=== PATIENT | female | born 2000 | race Two or more races ===

== ENCOUNTER 2020-01-23 16:31 | Inpatient (IN) | payer MEDICAID ==
[~2020-01-23] VITALS: Ht 149.9 cm; Wt 56.2 kg
[2020-01-23 17:00] VITALS: BP 98/54
--- NOTE | 2020-01-23 17:00 | NUR ---
RN OPENING NOTES RECEIVED PATIENT FROM [facility]USTER, DIRECT ADMIT VIA [facility]. A/OX 2, ABLE TO STATE NAME, BIRTHDAY BUT NOT PLACE AND TIME. IN ROOM AIR, SATURATING WELL. IV ACCESS ON R AC #20, INTACT, PATENT AND FLUSHED WELL. NO SIGNS OF INFILTRATION. COMPLAINT OF PAIN ON L ELBOW, 02/04. ABLE TO AMBULATE WITH ASSIST. BELONGINGS CHECKED AND FILED ON THE CHART. SAFETY MEASURES IN PLACE, CALL LIGHT WITHIN REACH. WILL CONTINUE TO MONITOR
[2020-01-23] MEDS ORDERED: FEE PK DOSING 1 MIN EA MC ONE (18:19)
[2020-01-23] MEDS ORDERED: Z GUARD REMEDY 2 OZ OINT TP PRN (18:30)
[2020-01-23] MEDS ORDERED: ONDANSETRON HCL/PF 4 MG/2 ML VIAL IVP PRN (18:30)
[2020-01-23] MEDS ORDERED: MAGNESIUM HYDROXIDE 30 ML UDC PO PRN (18:30)
[2020-01-23] MEDS ORDERED: MAG HYDROX/AL HYDROX/SIMETH 30 ML UDC PO PRN (18:30)
--- NOTE | 2020-01-23 19:35 | NUR ---
RN Notes Patient asleep, breathing regular and unlabored on room air, no signs of distress and discomfort noted. IV access on right AC intact and flushing well. Swelling of left elbow noted. Plan of care discussed with the mother at bedside and verbalized understanding. Kept comfortable and attended.. Will continue to monitor.
--- NOTE | 2020-01-23 19:59 | NUR ---
RN CLOSING NOTES PATIENT IN BED, ASLEEP. IN NO APPARENT DISTRESS NOTES. IN ROOM AIR, NO SOB NOTED. IV ACCESS INTACT, PATENT AND FLUSHED WELL. KEPT CLEAN AND DRY. ALL NEEDS MET. ENDORSED TO PM RN FOR ARISTIDES.
[2020-01-23 20:00] VITALS: BP 111/44
[2020-01-23] MEDS ORDERED: VANCOMYCIN 1 GM in IV D5W 250ml IV ONE (20:00)
[2020-01-23 20:03] LABS: ALBUMIN 2.6 g/dL (3.4-5.0); BILIRUBIN,TOTAL 0.5 mg/dL (0.2-1.0); CALCIUM, SERUM 7.9 mg/dL (8.5-10.1); CREATININE 0.6 mg/dL (0.6-1.3); POTASSIUM 3.4 mmol/L (3.5-5.1); TOTAL PROTEIN, SERUM 5.7 g/dL (6.4-8.2)
[2020-01-23 20:13] LABS: THYROID STIMULATING HORMONE 0.771 uIU/mL (0.358-3.74)
[2020-01-23] MEDS: IV NS 0.9% 1,000 ML IV PRN (20:41)
[2020-01-23 20:52] LABS: BASOPHILS % (AUTO) 0.1 % (0.0-2.0); EOSINOPHILS % (AUTO) 0.4 % (0.0-6.0); HEMATOCRIT 31 % (33-45); HEMOGLOBIN 10.4 g/dL (11.5-14.8); LYMPHOCYTES # (AUTO) 1.3 /CMM (0.8-4.8); LYMPHOCYTES % (AUTO) 8.8 % (20.0-44.0); MEAN CORPUSCULAR HGB CONC 33 g/dl (31.0-36.0); MEAN CORPUSCULAR VOLUME 90 fL (82-100); MONOCYTES # (AUTO) 1.4 /CMM (0.1-1.30); MONOCYTES % (AUTO) 9.5 % (2.0-12.0); NEUTROPHILS # (AUTO) 12.1 /CMM (1.8-8.9); NEUTROPHILS % (AUTO) 81.2 % (43.0-81.0); PLATELET COUNT (AUTO) 232 /CMM (150-450); RED BLOOD CELL COUNT(AUTO) 3.45 MIL/uL (4.0-5.2); WHITE BLOOD COUNT (AUTO) 14.9 K/uL (4.3-11.0)
--- NOTE | 2020-01-23 22:50 | NUR ---
RN Notes Lab results relayed to Dr Veliz, no orders made.
[2020-01-24 01:00] VITALS: BP 111/44
[2020-01-24] MEDS: VANCOMYCIN HCL 0.75 GM in IV D5W 250 ML IV SCH ×3 (04:03→20:28)
[2020-01-24 06:46] LABS: BASOPHILS % (AUTO) 0.2 % (0.0-2.0); EOSINOPHILS % (AUTO) 1.1 % (0.0-6.0); HEMATOCRIT 31 % (33-45); HEMOGLOBIN 10.4 g/dL (11.5-14.8); LYMPHOCYTES # (AUTO) 1.9 /CMM (0.8-4.8); MEAN CORPUSCULAR HGB CONC 34 g/dl (31.0-36.0); MEAN CORPUSCULAR VOLUME 90 fL (82-100); MONOCYTES # (AUTO) 1.2 /CMM (0.1-1.30); MONOCYTES % (AUTO) 9.4 % (2.0-12.0); NEUTROPHILS # (AUTO) 9.6 /CMM (1.8-8.9); NEUTROPHILS % (AUTO) 74.3 % (43.0-81.0); PLATELET COUNT (AUTO) 225 /CMM (150-450); RED BLOOD CELL COUNT(AUTO) 3.46 MIL/uL (4.0-5.2)
[2020-01-24 07:03] LABS: CREATININE 0.5 mg/dL (0.6-1.3); POTASSIUM 2.9 mmol/L (3.5-5.1)
--- NOTE | 2020-01-24 07:04 | NUR ---
RN Notes Patient slept well overnight. Vital signs stable, afebrile. Patient calm and cooperative, face sheet faxed to [facility] for psych consult. Voiding well. Fall precaution observed. All needs attended. Will continue to monitor and will endorse accordingly.
--- NOTE | 2020-01-24 07:50 | NUR ---
RN NOTE: Received patient in bed, awake, alert and verbally responsive. Respiration even and unlabored saturating 99% in room air. Patient verbalized pain on her (L) elbow and she was offered Tylenol per EMAR. Patient strongly refused to get a Tylenol, but instead she wanted a stronger pain medication. She was informed that the hospitalist for today will be inform about her request for pain medication. (R) AC IV site was noted intact and patent infusing with NS@ 75ml/hr. HOB elevated. Afebrile. Skin warm to touch. Call light within reach. Needs anticipated. Mother Lee Ann was present at the bedside.
[2020-01-24 08:00] VITALS: BP 96/68
--- NOTE | 2020-01-24 10:00 | NUR ---
RN NOTE: Efra Alba NP was in the unit and spoke with the patient. He gave orders, noted and carried out. Patient and mother were both informed.
[2020-01-24] MEDS ORDERED: POTASSIUM CHLORIDE 20 MEQ TAB.PRT.SR PO ONE (11:00)
[2020-01-24] MEDS: HYDROCODONE/APAP 10/325MG 1 EA TABLET PO PRN (11:10)
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
[2020-01-24] MEDS: IV NS 0.9% 1,000 ML IV PRN (14:21)
[2020-01-24 16:00] VITALS: BP 110/76
[2020-01-24] MEDS: LORAZEPAM 1 MG TABLET PO PRN (16:43)
--- NOTE | 2020-01-24 16:45 | NUR ---
RN NOTE: Patient was very agitated in the room and was talking to her mother Lee Ann to get her things over [facility], but the mother said that there was no belongings that were missing. Patient was given Ativan PRN and she was compliant with her medications. Left the room and patient kept shouting towards her mother and she wanted the mother to leave the room.
[2020-01-24] MEDS: MORPHINE SULFATE INJ 2 MG/ML DISP.SYRIN IV PRN (16:55)
[2020-01-24] MEDS ORDERED: NICOTINE PATCH (14MG) 14 MG PATCH.TD24 TD SCH (17:00)
--- NOTE | 2020-01-24 17:23 | NUR ---
RN NOTE: Called and left a voice message to Lee Ann mother that the patient wanted her to come back in the hospital. Awaiting for call back. Patient remained on 1:1 sitter at this time.
--- NOTE | 2020-01-24 18:00 | NUR ---
RN NOTE: Patient was very agitated inside the room, spilled the water pitcher in the floor and she was screaming in the room to speak with her mother Lee Ann, and was complaining of pain on her (L) elbow. Patient was given an Ativan PRN and Morphine for the pain. Despite talking to the patient that her mother was not answering the phone call, she kept insisting that she needed to speak with the mother. Patient was given cooling measures for her (L) arm, but strongly refused it. At 1745 the mother came back to the unit and patient calmed down right away. Patient remained on 1":1 sitter at this time.
--- NOTE | 2020-01-24 18:28 | NUR ---
RN NOTE: Received a telephone order from Efra Alba NP regarding a CT (L) elbow and (L) hand with contrast to r/o abscess. Order, noted and carried out. Patient and mother Lee Ann were informed at the bedside.
--- NOTE | 2020-01-24 19:45 | NUR ---
RN NOTE: Bedside report was given to BECCA Irwin for continuity of care. Patient's mother Lee Ann was at the bedside. Explained to her everything that happened when she stepped out of the unit earlier today. Informed her that for the patient's safety, the hospitalist ordered a 1:1 sitter for the patient. Patient's mother verbalized that she will be staying with the patient tonight.
--- NOTE | 2020-01-24 19:54 | NUR ---
MS RN NOTES PATIENT IN BED, AWAKE, MOTHER AT BEDSIDE, REFUSED SITTER IN THE ROOM. MOTHER WILL STAY THE NIGHT. ALERT AND ORIENTED X 2-3. BREATHING EVEN AND UNLABORED ON ROOM AIR. SHOWS NO SIGNS OF ACUTE RESPIRATORY DISTRESS, NO ACUTE PAIN. IV ON R WRIST 22G RUNNING NS AT 75ML/HR. IV SHOWS NO SIGNS OF INFILTRATION, NO REDNESS. ITS CLEAN, DRY AND INTACT. SAFETY PRECAUTIONS IN PLACE. BED IN LOWEST POSITION, LOCKED, AND CALL LIGHT KEPT WITHIN REACH. WILL CONTINUE TO MONITOR.
[2020-01-24 20:00] VITALS: BP 104/56
[2020-01-24] MEDS: ACETAMINOPHEN 325 MG TABLET PO PRN (20:55)
[2020-01-24 22:00] VITALS: BP 104/56
[2020-01-25] MEDS: VANCOMYCIN 1 GM in IV D5W 250 ML IV SCH ×3 (04:02→20:55)
[2020-01-25] MEDS: HYDROCODONE/APAP 5/325MG 1 EACH TABLET PO PRN ×2 (06:29→17:36)
[2020-01-25 06:31] LABS: BASOPHILS % (AUTO) 0.1 % (0.0-2.0); CALCIUM, SERUM 8.3 mg/dL (8.5-10.1); CREATININE 0.4 mg/dL (0.6-1.3); HEMATOCRIT 31 % (33-45); HEMOGLOBIN 10.3 g/dL (11.5-14.8); LYMPHOCYTES # (AUTO) 2.3 /CMM (0.8-4.8); LYMPHOCYTES % (AUTO) 22.3 % (20.0-44.0); MEAN CORPUSCULAR HGB CONC 34 g/dl (31.0-36.0); MEAN CORPUSCULAR VOLUME 90 fL (82-100); MONOCYTES # (AUTO) 0.9 /CMM (0.1-1.30); MONOCYTES % (AUTO) 8.1 % (2.0-12.0); NEUTROPHILS # (AUTO) 7.1 /CMM (1.8-8.9); NEUTROPHILS % (AUTO) 67.5 % (43.0-81.0); PLATELET COUNT (AUTO) 238 /CMM (150-450); POTASSIUM 3.3 mmol/L (3.5-5.1); RED BLOOD CELL COUNT(AUTO) 3.39 MIL/uL (4.0-5.2); WHITE BLOOD COUNT (AUTO) 10.5 K/uL (4.3-11.0)
--- NOTE | 2020-01-25 06:33 | NUR ---
MS RN NOTES PATIENT IN BED, WITH INTERMITTENT SLEEP, MOTHER AT BEDSIDE, ALERT AND ORIENTED X 2-3. BREATHING EVEN AND UNLABORED ON ROOM AIR. SHOWS NO SIGNS OF ACUTE RESPIRATORY DISTRESS, NO ACUTE PAIN. IV ON R FOREARM 22G RUNNING NS AT 75ML/HR. IV SHOWS NO SIGNS OF INFILTRATION, NO REDNESS. ITS CLEAN, DRY AND INTACT. ALL DUE MEDICATIONS GIVEN. SAFETY PRECAUTIONS IN PLACE. BED IN LOWEST POSITION, LOCKED, AND CALL LIGHT KEPT WITHIN REACH. WILL ENDORSE TO ONCOMING NURSE.
[2020-01-25] MEDS: IV NS 0.9% 1,000 ML IV PRN (06:58)
--- NOTE | 2020-01-25 07:20 | NUR ---
MS RN NOTES PATIENT A/OX 3 IN BED MOTHER AT BEDSIDE. COMPLAINING OF L HAND PAIN. AGITATED. ON ROOM AIR.RIGHT ARM IV SITE PATENT. CALL LIGHT WITHIN REACH. BED AT THE LOWEST POSITION LOCKED. WILL CONTINUE TO FOLLOW UP.
--- NOTE | 2020-01-25 07:27 | NUR ---
MS RN NOTES PATIENT REMOVED THE PREVIOUS NICOTIN PATCH AND REQUESTED A NEW ONE. CALLED PHARMACY AND ORDERED CHANGED TO [phone].
[2020-01-25] MEDS: NICOTINE PATCH (14MG) 14 MG PATCH.TD24 TD SCH (08:17)
[2020-01-25] MEDS: LORAZEPAM 1 MG TABLET PO PRN ×2 (08:17→19:27)
--- NOTE | 2020-01-25 08:30 | NUR ---
MS RN NOTES PATIENT REFUSED MORNING VITALS.
[2020-01-25] MEDS ORDERED: IOHEXOL-300 100 ML VIAL IV ONE (11:11)
[2020-01-25] MEDS ORDERED: IV NS 0.9% 250 ML IV ONE (11:11)
[2020-01-25] MEDS ORDERED: CT SWABBABLE VALVE TRANS SET 1 EA INFUS.SET MC ONE (11:11)
[2020-01-25] MEDS ORDERED: POTASSIUM CHLORIDE 20 MEQ TAB.PRT.SR PO SCH (11:30)
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
[2020-01-25] MEDS: ACETAMINOPHEN 325 MG TABLET PO PRN (13:08)
[2020-01-25] MEDS: GABAPENTIN 100 MG CAPSULE PO SCH ×2 (13:53→17:00)
[2020-01-25] MEDS ORDERED: GABAPENTIN 100 MG CAPSULE PO SCH (17:00)
[2020-01-25 17:35] LABS: APPEARANCE,URINE CLEAR (CLEAR); BILIRUBIN,URINE NEGATIVE (NEGATIVE); BLOOD, URINE NEGATIVE Ery/uL (NEGATIVE); COLOR,URINE YELLOW (YELLOW); KETONES,URINE NEGATIVE (NEGATIVE); LEUKOCYTE ESTERASE ,URINE NEGATIVE (NEGATIVE); NITRITE, URINE NEGATIVE (NEGATIVE); PH,URINE 7.5 (5.0-8.0); PROTEIN,URINE NEGATIVE (NEGATIVE); UGLUCOSE NEGATIVE (NEGATIVE); UROBILINOGEN,URINE 0.2 EU/dL (0.2)
--- NOTE | 2020-01-25 19:20 | NUR ---
MS RN NOTES PATIENT IN BED A/OX 3 MOTHER AT BED SIDE. CALM COOPERATIVE. NO SOB OR DISCOMFORT NOTED AT THIS TIME. ALL NEEDS ATTENDED. PATIENT WAS SEEN BY DR CHRISTINA TODAY AND PUT ON NEURONTIN. PSYCH CONSUL WILL BE DONE TOMORROW FOR FOLLOW UP. PATIENT STATED THAT SHE DOES NOT WANT TO HAVE ANY VISITORS. SIGNED PUT ON THE DOOR AND NOTIFIED SECURITY AND CHARGE NURSE.BED AT THE LOWEST POSITION LOCKED. CALL LIGHT WITHIN REACH. ENDORSED TO REVERBERATORY FURNACE SUPERVISOR NURSE FOR ARISTIDES.
[2020-01-25 20:00] VITALS: BP 122/73
--- NOTE | 2020-01-25 20:00 | NUR ---
RN NOTES RECEIVED PATIENT IN BED, ALERT AND ORIENTED X4, STABLE ON ROOM AIR, AGITATED AFTER BLOOD DRAW, SCREAMING AND YELLING, DEMANDING ATIVAN, LEFT ELBOW CELLULITIS, PAIN OF 6/10, ON MORPHINE FOR PAIN MANAGEMENT, INDEPENDENT OF ADLS, MOTHER AT THE BEDSIDE.
--- NOTE | 2020-01-25 20:30 | NUR ---
RN NOTES VANCO TROUGH DONE 9. PER PHARMACY, CONTINUE VANCOMYCIN 1GM IVPB, WILL ORDER ANOTHER VANCO TROUGH 01/26/20
[2020-01-25] MEDS: MORPHINE SULFATE INJ 2 MG/ML DISP.SYRIN IV PRN (20:55)
[2020-01-25] MEDS: GABAPENTIN 300 MG CAPSULE PO SCH (20:59)
[2020-01-26] MEDS: MORPHINE SULFATE INJ 2 MG/ML DISP.SYRIN IV PRN ×3 (00:59→09:03)
[2020-01-26] MEDS: LORAZEPAM 1 MG TABLET PO PRN ×3 (02:45→22:14)
[2020-01-26 04:00] VITALS: BP 96/59
[2020-01-26] MEDS: VANCOMYCIN 1 GM in IV D5W 250 ML IV SCH ×3 (04:22→19:48)
[2020-01-26 05:10] VITALS: BP 111/62
--- NOTE | 2020-01-26 06:32 | NUR ---
RN NOTES PATIENT ALERT AND ORIENTED, POOR INSIGHT, WITH EPISODES OF AGITATION, YELLING AT HER MOTHER, GIVEN ATIVAN AND MORPHINE FOR PAIN OF LEFT ELBOW, VANCOMYCIN 1 GRAM Q8HRS, CONTINENT OF URINE, TO CONTINUE PSYCH EVAL WITH DR. OSULLIVAN, FOLLOW UP RESULTS OF HIV AND HEPATITIS TESTS
[2020-01-26] MEDS: IV NS 0.9% 1,000 ML IV PRN (06:44)
[2020-01-26 07:06] LABS: BASOPHILS % (AUTO) 0.4 % (0.0-2.0); EOSINOPHILS % (AUTO) 2.2 % (0.0-6.0); HEMATOCRIT 33 % (33-45); LYMPHOCYTES # (AUTO) 2.5 /CMM (0.8-4.8); LYMPHOCYTES % (AUTO) 26.8 % (20.0-44.0); MEAN CORPUSCULAR HGB CONC 34 g/dl (31.0-36.0); MEAN CORPUSCULAR VOLUME 89 fL (82-100); MONOCYTES # (AUTO) 0.7 /CMM (0.1-1.30); MONOCYTES % (AUTO) 7.5 % (2.0-12.0); NEUTROPHILS # (AUTO) 5.8 /CMM (1.8-8.9); NEUTROPHILS % (AUTO) 63.1 % (43.0-81.0); PLATELET COUNT (AUTO) 307 /CMM (150-450); RED BLOOD CELL COUNT(AUTO) 3.68 MIL/uL (4.0-5.2); WHITE BLOOD COUNT (AUTO) 9.2 K/uL (4.3-11.0)
[2020-01-26 07:08] LABS: HIV SCRN 4G wRFX Non Reactive (Non Reactive)
--- NOTE | 2020-01-26 07:21 | NUR ---
MS RN NOTES PATIENT IN BED SLEEPING , MOTHER AT BEDSIDE. NO SOB OR DISCOMFORT NOTED AT THIS TIME. IV SITE PATENT. PATIENT IS AMBULATORY. CALL LIGHT WITHIN REACH, BED AT THE LOWEST POSITION LOCKED. WILL CONTINUE TO MONITOR PATIENT.
[2020-01-26 07:56] LABS: CALCIUM, SERUM 8.9 mg/dL (8.5-10.1); CREATININE 0.4 mg/dL (0.6-1.3); POTASSIUM 3.9 mmol/L (3.5-5.1)
[2020-01-26 08:00] VITALS: BP 127/90
[2020-01-26] MEDS: NICOTINE PATCH (14MG) 14 MG PATCH.TD24 TD SCH (08:00)
[2020-01-26] MEDS: GABAPENTIN 300 MG CAPSULE PO SCH ×3 (08:25→17:00)
--- NOTE | 2020-01-26 08:36 | NUR ---
MS RN NOTES PATIENT LEFT THE ROOM TO SMOKE AND RETURNED BY SECURITY DESPITE MOTHER WATCHING HER AT BEDSIDE. PATIENT DOESN'T WANT HER MOTHER TO BE IN THE ROOM WITH HER. ASKED MOTHER TO LEAVE THE ROOM. PATIENT WANT TO SMOKE CIGARETTES OUTSIDE, INFORMED PATIENT ABOUT OUR POLICY AND POLICY SIGNED BY PATIENT. PATIENT LEFT THE UNIT WITH [place] TO SMOKING AREA.
[2020-01-26] MEDS: HYDROMORPHONE 1 MG/1 ML DISP.SYRIN IV PRN ×2 (13:24→20:12)
[2020-01-26] MEDS ORDERED: LIDOCAINE 1%-EPI 1:200,000 SDV 10 ML VIAL IJ ONE (14:00)
--- NOTE | 2020-01-26 14:00 | NUR ---
MS RN NOTES PER DR DEVONTE VIDAL ASSISTANCE ONE TIME DILAUDID 1MG FOR PAIN . PATIENT HAD INCISION AND DRAINAGE FROM L ELBOW PERFORMED AT BED SIDE.
[2020-01-26] MEDS ORDERED: HYDROMORPHONE 1 MG/1 ML DISP.SYRIN IV ONE (14:30)
[2020-01-26 16:00] VITALS: BP 118/76
--- NOTE | 2020-01-26 16:18 | NUR ---
MS RN NOTES PATIENT IN BED AWAKE , PAIN AT TOLERABLE LEVEL 5/10 ABLE TO HAVE SOME REST.
--- NOTE | 2020-01-26 17:53 | NUR ---
MS RN NOTES PATIENT HAS NAUSEA BUT NO VOMITING PRESENT, UNABLE TO TAKE NEURONTIN.
--- NOTE | 2020-01-26 19:10 | NUR ---
MS RN OEPNING NOTES RECEIVED PATIENT IN BED A/OX 3 . CALM COOPERATIVE. NO SOB OR DISCOMFORT NOTED AT THIS TIME. WITH IV ON RIGHT ARM PATENT NO SWELLING,SAFETY MEASURE MAINTAINED .BED AT THE LOWEST POSITION LOCKED. CALL LIGHT WITHIN REACH.
--- NOTE | 2020-01-26 19:25 | NUR ---
MS RN NOTES PATIENT IN BED SITTING COMFORTABLY. NO PAIN OR DISCOMFORT AT THIS TIME. ALL NEEDS ATTENDED, MEDICATION GIVEN. INCISION AND DRAINAGE PROCEDURE PERFORMED TODAY. PATIENT IS AMBULATORY. REQUESTED TO SMOKE OUTSIDE 3 TIMES TODAY. BED AT THE LOWEST POSITION LOCKED. CALL LIGHT WITHIN REACH . ENDORSED TO FINE ARTS INSTRUCTOR NURSE FOR ARISTIDES.
--- NOTE | 2020-01-26 19:45 | NUR ---
RN NOTES ACCOMPANIED PATIENT TO SMOKE OUTSIDE OF THE HOSPITAL FOR 15 MINUTES PT IS CALM AND COOPERATIVE NO SIGN AND SYMPTOMS OF RESPIRATORY DISTRESS WILL CONT TO MONITOR
[2020-01-26] MEDS: HYDROCODONE/APAP 5/325MG 1 EACH TABLET PO PRN (21:05)
--- NOTE | 2020-01-26 21:55 | NUR ---
RN NOTES REPORTED TO DR ZIMMER ABOUT THE PT STILL COMPLAINING AND CRYING FOR PAIN ON HER LEFT ARM AFTER THE PRN DILAUDID AND NORCO THAT WAS GIVEN TO HER @ 1999 AND 2099 RESPECTIVELY, NO ORDER WAS MADE D/T DILAUDID IS ENOUGH ON HER AND SHE WAS POSITIVE IN METHAMPHETAMINE NOTED
[2020-01-26] MEDS: ACETAMINOPHEN 325 MG TABLET PO PRN (21:57)
--- NOTE | 2020-01-26 22:50 | NUR ---
RN NOTES CALLED DR. ZIMMER AGAIN TO INFORMED THAT THE PATIENT STILL CRYING AND THE PAIN MEDICATION IS NOT WORKING, DR. ZIMMER MADE AN ORDER FOR MORPHINE 1MG IV X1 NOW AND IF THE MORPHINE WAS EFFECTIVE CHANGE THE DILAUDID TO MORPHINE 2MG Q4H PRN FOR PAIN NOTED AND CARRIED OUT
[2020-01-26] MEDS ORDERED: MORPHINE SULFATE INJ 2 MG/ML DISP.SYRIN IV ONE (23:00)
--- NOTE | 2020-01-26 23:20 | NUR ---
2888 LEFT ELBOW DRESSING CHANGED PER PATIENT'S REQUEST DUE TO SOILAGE. NOTED PACKING INTACT. DRESSING REINFORCED AND WRAPPED AREA WITH KERLIX. PATIENT TOLERATED PROCEDURE WELL. EXPLAINED TO PATIENT TO KEEP AFFECTED ARM OFF PRESSURE AT ALL TIMES. PATIENT VERBALIZED UNDERSTANDING OF EXPLANATION AND THANKED NURSE. CALL LIGHT PLACED WITHIN REACH AND INSTRUCTED TO CALL FOR ASSISTANCE.
[2020-01-27] VITALS: BP 120/74
[2020-01-27] MEDS: HYDROMORPHONE 1 MG/1 ML DISP.SYRIN IV PRN ×4 (00:13→20:35)
[2020-01-27] MEDS: VANCOMYCIN 1 GM in IV D5W 250 ML IV SCH ×3 (04:04→20:34)
--- NOTE | 2020-01-27 07:15 | NUR ---
RN CLOSING NOTES PT AWAKE CALM AND NOT COMBATIVE, NO SIGN AND SYMPTOMS OF DISTRESS, MINIMAL PAIN WAS COMPLAINED ON LEFT ELBOW, O2 SAT >92% @ RA, ALL NEEDS ATTENDED SAFETY MEASURE MAINTAINED, BED ON LOWEST POSITION AND LOCKED SIDE RAILS UP X 2 CALL LIGHT WITHIN REACH WILL ENDORSED TO AM SHIFT NURSE
[2020-01-27 07:39] LABS: BASOPHILS % (AUTO) 0.3 % (0.0-2.0); EOSINOPHILS % (AUTO) 2.6 % (0.0-6.0); HEMATOCRIT 34 % (33-45); HEMOGLOBIN 11.5 g/dL (11.5-14.8); LYMPHOCYTES % (AUTO) 33.5 % (20.0-44.0); MEAN CORPUSCULAR HGB CONC 34 g/dl (31.0-36.0); MEAN CORPUSCULAR VOLUME 89 fL (82-100); MONOCYTES # (AUTO) 0.8 /CMM (0.1-1.30); MONOCYTES % (AUTO) 8.7 % (2.0-12.0); NEUTROPHILS # (AUTO) 4.9 /CMM (1.8-8.9); NEUTROPHILS % (AUTO) 54.9 % (43.0-81.0); PLATELET COUNT (AUTO) 335 /CMM (150-450); RED BLOOD CELL COUNT(AUTO) 3.84 MIL/uL (4.0-5.2); WHITE BLOOD COUNT (AUTO) 8.9 K/uL (4.3-11.0)
[2020-01-27 08:00] VITALS: BP_SYST 101; BP_SYST 119; BP_DIAS 63; BP_DIAS 69
[2020-01-27] MEDS: NICOTINE PATCH (14MG) 14 MG PATCH.TD24 TD SCH (08:00)
[2020-01-27 08:04] LABS: CALCIUM, SERUM 8.9 mg/dL (8.5-10.1); CREATININE 0.6 mg/dL (0.6-1.3); POTASSIUM 3.7 mmol/L (3.5-5.1)
[2020-01-27] MEDS: GABAPENTIN 300 MG CAPSULE PO SCH ×3 (08:54→17:27)
[2020-01-27] MEDS: LORAZEPAM 1 MG TABLET PO PRN ×2 (08:54→17:27)
[2020-01-27 16:00] VITALS: BP_SYST 102; BP_SYST 113; BP_DIAS 66; BP_DIAS 73
--- NOTE | 2020-01-27 19:25 | NUR ---
RN OPENING NOTE PT AWAKE CALM IN BED, NO SIGN AND SYMPTOMS OF DISTRESS, IV 22 GAUGE TO RIGHT HAND PATENT AND INTACT SAFETY MEASURES IN PLACE , BED ON LOWEST POSITION AND LOCKED. SIDE RAILS UP X 2 CALL LIGHT WITHIN REACH WILL CONTINUE TO MONITOR
[2020-01-27 20:00] VITALS: BP 123/66
[2020-01-27] MEDS: HYDROCODONE/APAP 10/325MG 1 EA TABLET PO PRN (23:02)
[2020-01-28] MEDS: LORAZEPAM 1 MG TABLET PO PRN ×2 (01:34→09:42)
[2020-01-28 04:00] VITALS: BP 158/66
[2020-01-28] MEDS: VANCOMYCIN 1 GM in IV D5W 250 ML IV SCH ×2 (04:44→11:06)
[2020-01-28] MEDS: HYDROMORPHONE 1 MG/1 ML DISP.SYRIN IV PRN ×2 (05:44→11:41)
[2020-01-28 07:11] LABS: CALCIUM, SERUM 9.3 mg/dL (8.5-10.1); CREATININE 0.6 mg/dL (0.6-1.3)
[2020-01-28] MEDS: HYDROCODONE/APAP 10/325MG 1 EA TABLET PO PRN ×2 (07:47→13:19)
[2020-01-28 08:00] VITALS: BP 101/43
[2020-01-28] MEDS: NICOTINE PATCH (14MG) 14 MG PATCH.TD24 TD SCH ×3 (08:00→15:19)
--- NOTE | 2020-01-28 08:00 | NUR ---
MS/RN OPENING NOTES RECEIVED PATIENT AWAKE AND YELLING,SAFETY MEASURES IN PLACE , PATIENT VERBALIZED PAIN. BED ON LOWEST POSITION AND LOCKED. SIDE RAILS UP X 2 CALL LIGHT WITHIN REACH WILL CONTINUE TO MONITOR.
[2020-01-28] MEDS: GABAPENTIN 300 MG CAPSULE PO SCH ×2 (08:56→09:00)
[2020-01-28 12:00] VITALS: BP 101/43
[2020-01-28] MEDS ORDERED: CLIN300C11 PO (14:34)
[2020-01-28] MEDS ORDERED: DOXY100C2 PO (14:34)
[2020-01-28 15:15] VITALS: BP 101/43
--- NOTE | 2020-01-28 16:35 | NUR ---
MS/RN NOTES PATIENT IS ALERT AND ORIENTED X4. DENIES PAIN AT THIS TIME. DRESSING CHANGED, DRY AND INTACT. IN ROOM AIR AIR AND SATURATION IS AT 100%. RESPIRATION REGULAR AND UNLABORED. THE PATIENT IN NO APPARENT DISTRESS. SEEN AND EXAMINED BY MD WITH ORDERS MADE AND CARRIED OUT. PATIENT WAS GIVEN DISCHARGED INSTRUCTIONS AND PATIENT VERBALIZED UNDERSTANDING. THE PATIENT LEFT THE HOSPITAL IN STABLE CONDITION, ACCOMPANIED BY EDAN THE MOTHER ON A PRIVATE CAR.
[2020-01-30 15:06] LABS: *HIV-1 RNA BY PCR <20 copies/mL (.)
== END 2020-01-28 17:00 | disposition home or self-care (01) | DRG 710 ==
LOC: MEDSG1 16:39
PROVIDERS: ADMIT Nurse Practitioner Acute Care; ATTEND Nurse Practitioner Acute Care
PROC: 0J9H0ZZ Drainage of Left Lower Arm Subcutaneous Tissue and Fascia, Open Approach (ICD-10-PCS; principal; 2020-01-26)
DX: A41.9 Sepsis, unspecified organism (principal); G92 Toxic encephalopathy; L03.114 Cellulitis of left upper limb; F15.90 Other stimulant use, unspecified, uncomplicated; E87.6 Hypokalemia; E83.52 Hypercalcemia; F11.90 Opioid use, unspecified, uncomplicated; L02.414 Cutaneous abscess of left upper limb; F41.9 Anxiety disorder, unspecified; Z72.0 Tobacco use; F29 Unspecified psychosis not due to a substance or known physiological condition; G31.84 Mild cognitive impairment of uncertain or unknown etiology; F31.9 Bipolar disorder, unspecified; D63.8 Anemia in other chronic diseases classified elsewhere
CPT/HCPCS: 36415; 73201-TC; 80048-TC; 80053-TC; 80061-TC; 80202-TC; 81000-TC; 84443-TC; 84703-TC; 85025-TC; 86803; 87040-TC; 87070-TC; 87081-TC; 87536; A6253; A6403; A6407; G0378; J1170; J2270; J2405; J3370; J3490; J7030; J7050; J7060; Q9967